=== PATIENT | female | born 1955 | race Caucasian/White ===

== ENCOUNTER → 2016-06-05 | Outpatient (CLI) | payer OTHER ==
[~2016-06-05] MED LIST: ALBUTEROL17 GM IH; ALEVE220 M2 PO; AMBIEN5 M1 PO; AMBIEN5 MG PO; AQUAPHOR OINTM105 GM TP; ATARAX,VISTARIL50 MG PO; AZOR 5/40 MG1 TABLET PO; CALCIUM + D 601 EACH PO; CALCIUM 500 MG1 EACH PO; CYMBALTA30 MG PO; DELTASONE20 M1 PO; Ecotrin PO; FERROUS SULFAT325 MG PO; HEPARIN SO5000 UNITS SC; HUMULIN 70100 UNIT/2 SC; HYDROCHLOROTH12.5 M1 PO; IBUPROFEN800 MG PO; LIPITOR80 MG PO; LOPERAMIDE2 MG PO; LOPRESSOR100 M1 PO; LOPRESSOR50 MG PO; Lopressor PO; MERREM1 GM IV; METFORMIN HCL500 M1 PO; METFORMIN HCL500 MG PO; METOPROLOL TART50 MG PO; MICROZIDE12.5 M1 PO; MULTI-DAY VITA1 EACH PO; NAPROSYN250 MG PO; NORVASC5 MG PO; OMEPRAZOLE40 M1 PO; PREDNISONE20 MG PO; PROAIR HFA8.5 GM IH; PROTONIX40 MG PO; Percocet 5/325,Endoc PO; QUESTRAN PACKET4 GM PO; SENOKOT S,PE1 TABLET PO; SINGULAIR10 MG PO; TELMISARTAN-AM1 EACH PO; TOPROL XL100 MG PO; TRAMADOL HCL50 MG PO; TYLENOL REGULA325 MG PO; VICTOZA 2-0.6 MG/0.1 SC; VITAMIN C1000 MG PO; Vicodin,Norco 5/325 PO; ZANTAC150 MG PO; ZOMIG5 MG PO; ZYVOX600 MG PO
== END | disposition home or self-care (01) ==
LOC: CDC 11:31
DX: Z01.810 Encounter for preprocedural cardiovascular examination (principal)
CPT/HCPCS: 93000

== ENCOUNTER 2016-06-06 06:12 | Day surgery (SDC) | payer OTHER ==
[~2016-06-06] VITALS: Ht 172.7 cm; Wt 116.1 kg
[~2016-06-06 06:12] MED LIST changes: -HEPARIN SO5000 UNITS SC; -HUMULIN 70100 UNIT/2 SC; -LIPITOR80 MG PO; -LOPRESSOR50 MG PO; -MERREM1 GM IV; -NORVASC5 MG PO; -TYLENOL REGULA325 MG PO; -ZYVOX600 MG PO
[2016-06-06 07:11] VITALS: BP 127/62
[2016-06-06 07:23] LABS: POINT-OF-CARE METER ID UU14174212
[2016-06-06 12:27] VITALS: BP 158/84
[2016-06-06 13:17] VITALS: BP 144/73
== END 2016-06-06 13:20 | disposition home or self-care (01) ==
LOC: SDC 06:12
PROVIDERS: Urology
DX: N20.1 Calculus of ureter (principal); I10 Essential (primary) hypertension; E11.9 Type 2 diabetes mellitus without complications; K21.9 Gastro-esophageal reflux disease without esophagitis; J45.909 Unspecified asthma, uncomplicated
CPT/HCPCS: 82948; C1876; J1100; J1580; J2250; J2405; J3010; J7120

== ENCOUNTER 2016-06-08 17:30 | Inpatient (IN) | payer OTHER ==
[~2016-06-08] VITALS: Ht 167.6 cm; Wt 127.8 kg
[2016-06-08 17:52] LABS: CREATININE 3.7 mg/dL (0.6-1.3); POTASSIUM 3.6 mEq/L (3.7-5.4)
[2016-06-08 18:45] LABS: ADD MIUA? YES; BILIRUBIN NEGATIVE; BLOOD LARGE; COLOR DK YELLOW ((YELLOW)); GLUCOSE (STRIP) NEGATIVE; KETONES NEGATIVE; LEUKOCYTES LARGE; NITRITE NEGATIVE; PROTEIN (STRIP) 30; SPECIFIC GRAVITY 1.018 (1.000-1.030); UROBILINOGEN 0.2 MG/DL (0.2-1.0)
[2016-06-08 19:29] LABS: CHLORIDE 101 mEq/L (99-109); POTASSIUM 3.5 mEq/L (3.7-5.4)
[2016-06-08 19:31] LABS: SODIUM 135 mEq/L (136-147)
[2016-06-08 19:32] LABS: GLUCOSE 181 mg/dL (70-99)
[2016-06-08 19:33] LABS: ANION GAP 16 MEQ/L (2-14)
[2016-06-08 19:34] LABS: TOTAL BILIRUBIN 1.4 mg/dL (0.0-1.0)
[2016-06-08 19:35] LABS: ALKALINE PHOSPHATASE 76 IU/L (3-129); SERUM ETHYL ALCOHOL < 10 mg/dL
[2016-06-08 19:36] LABS: GFR ESTIMATE (CALCULATED) 14 mL/min/
[2016-06-08 19:37] LABS: BACTERIA 4+; CASTS NONE SEEN /LPF; CRYSTALS NONE SEEN; EPITHELIAL CELLS 2+; MUCUS NONE SEEN; RED BLOOD CELLS 40-50 /HPF (0-5); UCUL ADDED? YES; WHITE BLOOD CELLS 40-50 /HPF (0-5)
[2016-06-08 19:37] LABS: UREA NITROGEN (BUN) 38 mg/dL (9-23)
[2016-06-08 19:39] LABS: TOTAL CK 2691 IU/L (1-294)
[2016-06-08 19:42] LABS: TROP-I INTERPRETATION POSITIVE
[2016-06-08 19:44] LABS: CK-MB 28.5 ng/mL (0.0-4.9); CREATINE KINASE 2691 IU/L (1-294); TROPONIN-I 1.57 ng/mL (0.0-0.30)
[2016-06-08 20:18] LABS: EOSINOPHIL (%) 0 % (0-5); HEMATOLOGY COMMENT 1 SMEAR COMPATIBLE; IMMATURE GRANULOCYTE (%) 1.8 % (0.0-0.7); LYMPHOCYTE COUNT 1.8 K/uL (1.0-2.8); MONOCYTE (%) 4.3 % (3-12); MONOCYTE COUNT 1.2 K/uL (0-0.8); NEUTROPHIL (%) 87.3 % (45-76); NEUTROPHIL COUNT 24.7 K/uL (1.8-6.4); PLAT.SUFFICIENCY DECREASED; USER ID NPD
[2016-06-08 20:21] LABS: HEMATOCRIT 35.7 % (36.0-46.0); MCH 29.5 PG (29.0-34.0); MCHC 32.8 G/DL (30.0-36.0); MCV 90.2 FL (83-99); MEAN PLAT.VOLUME 11.2 uM^3 (9.5-12.4); PLATELET COUNT 140 K/uL (156-360); RBC DIS.WIDTH-CV 15.6 % (11.8-14.6); RBC DIS.WIDTH-SD 50.6 % (39-53); RED BLOOD COUNT 3.96 M/uL (3.80-5.20); WHITE BLOOD COUNT 28.3 K/uL (4.1-10.2)
[2016-06-08 21:45] VITALS: BP 126/59
[2016-06-08 22:00] VITALS: BP 115/61
[2016-06-08 22:48] VITALS: BP 130/67
[2016-06-08 22:50] LABS: BICARBONATE 16.7 mEq/L (22-26); CARBOXY HGB 2.4 % (0-5); COMMENTS - BLOOD GASES C+; DEVICE VENT; FI02 50 %; MECHANICAL RATE 16 resp/min; METHEMOGLOBIN 1.7 % (0-1.5); MODE AC; PCO2 31 mm Hg (35-45); PEEP 5 CM/H20; PO2 59 mm Hg (80-100); SITE ALINE; TIDAL VOLUME 450 ML; TOTAL RESP RATE 28 resp/min; pH 7.34 (7.35-7.45)
[2016-06-08 23:00] VITALS: BP 130/67
[2016-06-08 23:26] LABS: METH RESISTANT S AUREUS PCR NEGATIVE (NEGATIVE)
[2016-06-08 23:27] LABS: PROBE CHECK PASS; SPECIMEN PROCESSING CONTROL PASS
[2016-06-09] VITALS (19 sets, daily range): BP systolic 82–139; BP diastolic 44–84
[2016-06-09 00:34] LABS: HEMATOCRIT 36.2 % (36.0-46.0); MCH 29.7 PG (29.0-34.0); MCHC 33.4 G/DL (30.0-36.0); MCV 88.9 FL (83-99); MEAN PLAT.VOLUME 11.3 uM^3 (9.5-12.4); PLATELET COUNT 145 K/uL (156-360); RBC DIS.WIDTH-CV 15.8 % (11.8-14.6); RBC DIS.WIDTH-SD 50.7 % (39-53); RED BLOOD COUNT 4.07 M/uL (3.80-5.20); WHITE BLOOD COUNT 24.8 K/uL (4.1-10.2)
[2016-06-09 01:00] LABS: TROP-I INTERPRETATION POSITIVE
[2016-06-09 01:03] LABS: TROPONIN-I 1.34 ng/mL (0.0-0.30)
[2016-06-09 01:13] LABS: CHLORIDE 107 mEq/L (99-109); POTASSIUM 3.3 mEq/L (3.7-5.4); SODIUM 135 mEq/L (136-147)
[2016-06-09 01:15] LABS: GLUCOSE 164 mg/dL (70-99)
[2016-06-09 01:17] LABS: ANION GAP 14 MEQ/L (2-14)
[2016-06-09 01:19] LABS: GFR ESTIMATE (CALCULATED) 15 mL/min/
[2016-06-09 01:20] LABS: UREA NITROGEN (BUN) 41 mg/dL (9-23)
[2016-06-09 01:59] LABS: ABS NEUTROPHIL COUNT 19.82; ANISOCYTOSIS 1+; EOSINOPHIL ABS CT 0.25; MACROCYTES 1+; MICROCYTOSIS FEW; PLAT.SUFFICIENCY ADEQUATE; POLYCHROMASIA FEW; SPHEROCYTES 1+
[2016-06-09 07:24] LABS: HEMATOCRIT 34.5 % (36.0-46.0); MCH 30.2 PG (29.0-34.0); MCHC 33.6 G/DL (30.0-36.0); MCV 89.8 FL (83-99); MEAN PLAT.VOLUME 11.8 uM^3 (9.5-12.4); PLATELET COUNT 139 K/uL (156-360); RBC DIS.WIDTH-CV 16.1 % (11.8-14.6); RED BLOOD COUNT 3.84 M/uL (3.80-5.20); WHITE BLOOD COUNT 19.2 K/uL (4.1-10.2)
[2016-06-09 07:32] LABS: INTER. NORMALIZED RATIO 1.4; PROTHROMBIN TIME 13.9 (9.2-11.2)
[2016-06-09 08:15] LABS: ANION GAP 16 MEQ/L (2-14); CHLORIDE 105 MEQ/L (99-109); GFR ESTIMATE (CALCULATED) 14 mL/min/; GLUCOSE 133 mg/dL (70-99); POTASSIUM 3.6 MEQ/L (3.7-5.4); SAMPLE HEMOLYSIS CHECK 1; SAMPLE ICTERIC CHECK 0; SAMPLE LIPEMIA CHECK 0; SODIUM 136 MEQ/L (136-147); UREA NITROGEN (BUN) 41 mg/dL (9-23)
[2016-06-09 09:04] LABS: BASE EXCESS -6.7 mEq/L (-3 to +3); BICARBONATE 16.5 mEq/L (22-26); CARBOXY HGB 2.1 % (0-5); METHEMOGLOBIN 1.6 % (0-1.5); pH 7.41 (7.35-7.45)
[2016-06-09 09:05] LABS: COMMENTS - BLOOD GASES C+; DEVICE 840; FI02 40 %; MECHANICAL RATE 16 resp/min; MODE A/C; PCO2 26 mm Hg (35-45); PEEP 5 CM/H20; PO2 78 mm Hg (80-100); SITE ALINE; TIDAL VOLUME 450 ML; TOTAL RESP RATE 38 resp/min
[2016-06-09 09:34] LABS: MAGNESIUM 1.5 mg/dl (1.3-2.7)
[2016-06-09 10:32] LABS: ABS NEUTROPHIL COUNT 16.68; ANISOCYTOSIS 1+; EOSINOPHIL (%) 0 % (0-5); IMMATURE GRANULOCYTE (%) 6.7 % (0.0-0.7); IMMATURE GRANULOCYTE COUNT 1.3 K/uL; LYMPHOCYTE COUNT 1.4 K/uL (1.0-2.8); MONOCYTE (%) 3.1 % (3-12); MONOCYTE COUNT 0.6 K/uL (0-0.8); NEUTROPHIL (%) 82.5 % (45-76); NEUTROPHIL COUNT 15.8 K/uL (1.8-6.4); PLAT.SUFFICIENCY DECREASED; USER ID STC
[2016-06-09 12:25] LABS: HEMATOCRIT 33.6 % (36.0-46.0); MCH 29.7 PG (29.0-34.0); MCV 89.8 FL (83-99); MEAN PLAT.VOLUME 12.2 uM^3 (9.5-12.4); PLATELET COUNT 140 K/uL (156-360); RBC DIS.WIDTH-CV 16.3 % (11.8-14.6); RBC DIS.WIDTH-SD 53.9 % (39-53); RED BLOOD COUNT 3.74 M/uL (3.80-5.20); WHITE BLOOD COUNT 14.6 K/uL (4.1-10.2)
[2016-06-09 12:32] LABS: EOSINOPHIL (%) 0.1 % (0-5); IMMATURE GRANULOCYTE (%) 1.8 % (0.0-0.7); IMMATURE GRANULOCYTE COUNT 0.3 K/uL; LYMPHOCYTE COUNT 1.1 K/uL (1.0-2.8); MONOCYTE (%) 3.6 % (3-12); MONOCYTE COUNT 0.5 K/uL (0-0.8); NEUTROPHIL (%) 86.9 % (45-76); NEUTROPHIL COUNT 12.7 K/uL (1.8-6.4)
[2016-06-09 12:44] LABS: ANION GAP 17 MEQ/L (2-14); CHLORIDE 105 MEQ/L (99-109); GFR ESTIMATE (CALCULATED) 14 mL/min/; GLUCOSE 187 mg/dL (70-99); SAMPLE HEMOLYSIS CHECK 2; SAMPLE ICTERIC CHECK 0; SAMPLE LIPEMIA CHECK 0; SODIUM 137 MEQ/L (136-147); UREA NITROGEN (BUN) 45 mg/dL (9-23)
[2016-06-09 12:45] LABS: TROP-I INTERPRETATION POSITIVE
[2016-06-09 12:47] LABS: TROPONIN-I 0.66 ng/mL (0.0-0.30)
[2016-06-09 13:42] LABS: MAGNESIUM 1.6 mg/dl (1.3-2.7)
[2016-06-09 13:48] LABS: HEMATOLOGY COMMENT 1 SMEAR COMPATIBLE; USER ID STC
[2016-06-09 14:50] LABS: BASE EXCESS -10.5 mEq/L (-3 to +3); BICARBONATE 14.9 mEq/L (22-26); CARBOXY HGB 1.9 % (0-5); COMMENTS - BLOOD GASES C+; DEVICE 840; FI02 100 %; MECHANICAL RATE 28 resp/min; METHEMOGLOBIN 1.5 % (0-1.5); MODE A/C; PCO2 31 mm Hg (35-45); PO2 169 mm Hg (80-100); SITE ALINE; TOTAL RESP RATE 28 resp/min
[2016-06-09 14:51] LABS: PEEP 10 CM/H20; TIDAL VOLUME 500 ML; pH 7.29 (7.35-7.45)
[2016-06-09 16:56] LABS: TROP-I INTERPRETATION POSITIVE
[2016-06-09 17:16] LABS: ANION GAP 20 MEQ/L (2-14); CHLORIDE 104 MEQ/L (99-109); GFR ESTIMATE (CALCULATED) 13 mL/min/; GLUCOSE 186 mg/dL (70-99); POTASSIUM 3.6 MEQ/L (3.7-5.4); SAMPLE HEMOLYSIS CHECK 0; SAMPLE ICTERIC CHECK 0; SAMPLE LIPEMIA CHECK 0; SODIUM 137 MEQ/L (136-147); UREA NITROGEN (BUN) 43 mg/dL (9-23)
[2016-06-09 19:15] LABS: MAGNESIUM 2.6 mg/dl (1.3-2.7)
[2016-06-09 19:59] LABS: BASOPHIL COUNT 0.1 K/uL (0-0.1); EOSINOPHIL (%) 0 % (0-5); HEMATOCRIT 34.6 % (36.0-46.0); IMMATURE GRANULOCYTE (%) 7.5 % (0.0-0.7); IMMATURE GRANULOCYTE COUNT 1.9 K/uL; LYMPHOCYTE COUNT 0.8 K/uL (1.0-2.8); MCH 30.3 PG (29.0-34.0); MCHC 33.8 G/DL (30.0-36.0); MCV 89.6 FL (83-99); MEAN PLAT.VOLUME 12.9 uM^3 (9.5-12.4); MONOCYTE (%) 3.7 % (3-12); MONOCYTE COUNT 0.9 K/uL (0-0.8); NEUTROPHIL (%) 85.2 % (45-76); NEUTROPHIL COUNT 21.4 K/uL (1.8-6.4); PLAT.SUFFICIENCY DECREASED; PLATELET COUNT 87 K/uL (156-360); RBC DIS.WIDTH-CV 16.5 % (11.8-14.6); RED BLOOD COUNT 3.86 M/uL (3.80-5.20); WHITE BLOOD COUNT 25.1 K/uL (4.1-10.2)
[2016-06-09 23:57] LABS: POTASSIUM 3.7 mEq/L (3.7-5.4)
[2016-06-10] VITALS (19 sets, daily range): BP systolic 102–142; BP diastolic 49–75
[2016-06-10 01:03] LABS: TROP-I INTERPRETATION INDETERMINATE; TROPONIN-I 0.49 ng/mL (0.0-0.30)
[2016-06-10 01:34] LABS: CHLORIDE 102 mEq/L (99-109); POTASSIUM 3.7 mEq/L (3.7-5.4); SODIUM 134 mEq/L (136-147)
[2016-06-10 01:37] LABS: ANION GAP 18 MEQ/L (2-14)
[2016-06-10 01:39] LABS: GFR ESTIMATE (CALCULATED) 11 mL/min/
[2016-06-10 01:40] LABS: UREA NITROGEN (BUN) 48 mg/dL (9-23)
[2016-06-10 01:43] LABS: GLUCOSE 298 mg/dL (70-99)
[2016-06-10 01:47] LABS: EOSINOPHIL (%) 0.8 % (0-5); EOSINOPHIL COUNT 0.1 K/uL (0-0.3); HEMATOCRIT 31.3 % (36.0-46.0); IMMATURE GRANULOCYTE (%) 5.6 % (0.0-0.7); IMMATURE GRANULOCYTE COUNT 0.9 K/uL; LYMPHOCYTE COUNT 1.1 K/uL (1.0-2.8); MCH 29.4 PG (29.0-34.0); MCHC 33.5 G/DL (30.0-36.0); MCV 87.7 FL (83-99); MONOCYTE (%) 3.5 % (3-12); MONOCYTE COUNT 0.6 K/uL (0-0.8); NEUTROPHIL (%) 83.2 % (45-76); NEUTROPHIL COUNT 13.5 K/uL (1.8-6.4); RBC DIS.WIDTH-CV 16.2 % (11.8-14.6); RBC DIS.WIDTH-SD 52.4 % (39-53); RED BLOOD COUNT 3.57 M/uL (3.80-5.20)
[2016-06-10 01:53] LABS: WHITE BLOOD COUNT 16.3 K/uL (4.1-10.2)
[2016-06-10 02:34] LABS: ABS NEUTROPHIL COUNT 15.29; ANISOCYTOSIS 1+; MEAN PLAT.VOLUME 12.7 uM^3 (9.5-12.4); OVALOCYTES OCC; PLAT.SUFFICIENCY DECREASED; PLATELET COUNT 104 K/uL (156-360); POLYCHROMASIA OCC; SCHISTOCYTES OCC; TEAR DROP CELLS RARE; TOXIC GRANULATION 1+; USER ID WCD
[2016-06-10 04:51] LABS: HEMATOCRIT 30.2 % (36.0-46.0); MCH 29.8 PG (29.0-34.0); MCHC 34.4 G/DL (30.0-36.0); MCV 86.5 FL (83-99); MEAN PLAT.VOLUME 12.3 uM^3 (9.5-12.4); PLATELET COUNT 84 K/uL (156-360); RBC DIS.WIDTH-CV 15.9 % (11.8-14.6); RBC DIS.WIDTH-SD 49.8 % (39-53); RED BLOOD COUNT 3.49 M/uL (3.80-5.20)
[2016-06-10 04:59] LABS: EOSINOPHIL (%) 0.5 % (0-5); EOSINOPHIL COUNT 0.1 K/uL (0-0.3); LYMPHOCYTE COUNT 1.2 K/uL (1.0-2.8); MONOCYTE COUNT 0.5 K/uL (0-0.8); NEUTROPHIL (%) 86.5 % (45-76)
[2016-06-10 05:06] LABS: CHLORIDE 102 mEq/L (99-109); POTASSIUM 3.9 mEq/L (3.7-5.4); SODIUM 133 mEq/L (136-147)
[2016-06-10 05:07] LABS: GLUCOSE 337 mg/dL (70-99)
[2016-06-10 05:09] LABS: ANION GAP 15 MEQ/L (2-14)
[2016-06-10 05:11] LABS: GFR ESTIMATE (CALCULATED) 11 mL/min/
[2016-06-10 05:12] LABS: UREA NITROGEN (BUN) 49 mg/dL (9-23)
[2016-06-10 05:22] LABS: TROP-I INTERPRETATION INDETERMINATE; TROPONIN-I 0.44 ng/mL (0.0-0.30)
[2016-06-10 10:15] LABS: POINT-OF-CARE METER ID UU13113803
[2016-06-10 10:55] LABS: C DIFF TOXIN NEGATIVE (NEGATIVE)
[2016-06-10 10:56] LABS: PROBE CHECK PASS; SPECIMEN PROCESSING CONTROL PASS
[2016-06-10 11:08] LABS: BASE EXCESS -0.6 mEq/L (-3 to +3); CARBOXY HGB 1.4 % (0-5); METHEMOGLOBIN 1.6 % (0-1.5); PCO2 27 mm Hg (35-45); PO2 157 mm Hg (80-100); pH 7.51 (7.35-7.45)
[2016-06-10 11:09] LABS: BICARBONATE 21.5 mEq/L (22-26); COMMENTS - BLOOD GASES C+; DEVICE 840; FI02 60 %; MECHANICAL RATE 28 resp/min; MODE A/C; PEEP 10 CM/H20; SITE ALINE; TIDAL VOLUME 500 ML; TOTAL RESP RATE 28 resp/min
[2016-06-10 12:38] LABS: HEMATOCRIT 30.5 % (36.0-46.0); MCH 29.7 PG (29.0-34.0); MCHC 34.4 G/DL (30.0-36.0); MCV 86.4 FL (83-99); MEAN PLAT.VOLUME 12.7 uM^3 (9.5-12.4); PLATELET COUNT 105 K/uL (156-360); RBC DIS.WIDTH-CV 16.2 % (11.8-14.6); RBC DIS.WIDTH-SD 51.9 % (39-53); RED BLOOD COUNT 3.53 M/uL (3.80-5.20); WHITE BLOOD COUNT 15.7 K/uL (4.1-10.2)
[2016-06-10 12:49] LABS: EOSINOPHIL (%) 0.1 % (0-5); IMMATURE GRANULOCYTE (%) 2.3 % (0.0-0.7); IMMATURE GRANULOCYTE COUNT 0.4 K/uL; LYMPHOCYTE COUNT 0.8 K/uL (1.0-2.8); MONOCYTE (%) 3.1 % (3-12); MONOCYTE COUNT 0.5 K/uL (0-0.8); NEUTROPHIL (%) 89.5 % (45-76); NEUTROPHIL COUNT 14.1 K/uL (1.8-6.4)
[2016-06-10 13:07] LABS: ANION GAP 14 MEQ/L (2-14); CHLORIDE 98 MEQ/L (99-109); GFR ESTIMATE (CALCULATED) 12 mL/min/; GLUCOSE 268 mg/dL (70-99); POTASSIUM 3.8 MEQ/L (3.7-5.4); SAMPLE HEMOLYSIS CHECK 1; SAMPLE ICTERIC CHECK 0; SAMPLE LIPEMIA CHECK 0; SODIUM 133 MEQ/L (136-147); UREA NITROGEN (BUN) 47 mg/dL (9-23)
[2016-06-10 13:40] LABS: HEMATOLOGY COMMENT 1 SMEAR COMPATIBLE; USER ID STC
[2016-06-10 13:55] LABS: POINT-OF-CARE METER ID UU13113803
[2016-06-10 19:54] LABS: POINT-OF-CARE METER ID UU14162636
== END 2016-06-10 21:38 | disposition short-term general hospital (02) | DRG 871 ==
LOC: EME → EDBD 17:30 → EME 17:30 → 4WEST 19:53 → EDOF 19:53 → 4WEST 21:30
PROVIDERS: Emergency Medicine; Internal Medicine Critical Care Medicine; Internal Medicine Nephrology
PROC: 0TF78ZZ Fragmentation in Left Ureter, Via Natural or Artificial Opening Endoscopic (ICD-10-PCS; 2016-06-06)
PROC: 0T778DZ Dilation of Left Ureter with Intraluminal Device, Via Natural or Artificial Opening Endoscopic (ICD-10-PCS; 2016-06-06)
PROC: 5A1945Z Respiratory Ventilation, 24-96 Consecutive Hours (ICD-10-PCS; principal; 2016-06-08)
PROC: 0BH17EZ Insertion of Endotracheal Airway into Trachea, Via Natural or Artificial Opening (ICD-10-PCS; 2016-06-08)
PROC: 03HY32Z Insertion of Monitoring Device into Upper Artery, Percutaneous Approach (ICD-10-PCS; 2016-06-08)
PROC: B54BZZA Ultrasonography of Right Lower Extremity Veins, Guidance (ICD-10-PCS; 2016-06-08)
PROC: 06HM33Z Insertion of Infusion Device into Right Femoral Vein, Percutaneous Approach (ICD-10-PCS; 2016-06-08)
PROC: 03HY32Z Insertion of Monitoring Device into Upper Artery, Percutaneous Approach (ICD-10-PCS; 2016-06-09)
PROC: B34JZZZ Ultrasonography of Left Upper Extremity Arteries (ICD-10-PCS; 2016-06-09)
PROC: 02HV33Z Insertion of Infusion Device into Superior Vena Cava, Percutaneous Approach (ICD-10-PCS; 2016-06-10)
DX: A41.59 Other Gram-negative sepsis (principal); R65.21 Severe sepsis with septic shock; N13.6 Pyonephrosis; N17.9 Acute kidney failure, unspecified; E87.2 Acidosis; M62.82 Rhabdomyolysis; Z16.24 Resistance to multiple antibiotics; F32.9 Major depressive disorder, single episode, unspecified; E11.9 Type 2 diabetes mellitus without complications; G89.4 Chronic pain syndrome; E66.9 Obesity, unspecified; I10 Essential (primary) hypertension; K21.9 Gastro-esophageal reflux disease without esophagitis; G43.909 Migraine, unspecified, not intractable, without status migrainosus; I48.0 Paroxysmal atrial fibrillation; R79.89 Other specified abnormal findings of blood chemistry; J45.909 Unspecified asthma, uncomplicated; Z68.41 Body mass index [BMI] 40.0-44.9, adult; Z23 Encounter for immunization; Z88.2 Allergy status to sulfonamides; Z79.82 Long term (current) use of aspirin; Z88.0 Allergy status to penicillin
CPT/HCPCS: 36415; 36600; 70450; 71010; 74176; 80047; 80048; 80048 91; 80053; 80202; 81003; 82550; 82553; 82803; 82948; 83605; 83735; 83880; 84100; 84484; 84550; 84999; 85025; 85025 91; 85027; 85610; 87040; 87070; 87077; 87086; 87186; 87205; 87493; 87641; 87801; 93000; 93005; 93306; 94002; 94003; 99202; 99281; 99285; C1788; C1876; G0480; J0282; J0692; J1100; J1580; J1644; J1720; J1815; J2185; J2250; J2405; J3010; J3370; J3475; J3480; J7040; J7050; J7070; J7120; P9045; S0028

== ENCOUNTER 2016-06-23 11:58 | Inpatient (IN) | payer OTHER ==
[~2016-06-23] VITALS: Ht 172.7 cm; Wt 121.9 kg
[2016-06-23 12:30] VITALS: BP 136/62
[2016-06-23 13:28] LABS: POINT-OF-CARE METER ID UU14174215
[2016-06-23] MEDS ORDERED: TYLENOL REGULA325 MG PO (14:17)
[2016-06-23] MEDS ORDERED: NORVASC5 MG PO (14:18)
[2016-06-23] MEDS ORDERED: LIPITOR80 MG PO (14:19)
[2016-06-23] MEDS ORDERED: HEPARIN SO5000 UNITS SC (14:21)
[2016-06-23] MEDS ORDERED: MICROZIDE12.5 M1 PO (14:22)
[2016-06-23] MEDS ORDERED: HUMULIN 70100 UNIT/2 SC (14:23)
[2016-06-23] MEDS ORDERED: ZYVOX600 MG PO (14:24)
[2016-06-23] MEDS ORDERED: MERREM1 GM IV (14:26)
[2016-06-23] MEDS ORDERED: ZANTAC150 MG PO (14:28)
[2016-06-23] MEDS ORDERED: LOPRESSOR50 MG PO (14:28)
[2016-06-23 15:43] VITALS: BP 130/60
[2016-06-23 16:31] LABS: POINT-OF-CARE METER ID UU14174215
[2016-06-23 20:09] LABS: POINT-OF-CARE METER ID UU14174215
[2016-06-24 00:15] VITALS: BP 138/62
[2016-06-24 04:28] LABS: CHLORIDE 104 mEq/L (99-109); POTASSIUM 4.2 mEq/L (3.7-5.4); SODIUM 140 mEq/L (136-147)
[2016-06-24 04:32] LABS: ANION GAP 8 MEQ/L (2-14); GLUCOSE 116 mg/dL (70-99); TOTAL BILIRUBIN 0.8 mg/dL (0.0-1.0)
[2016-06-24 04:34] LABS: ALKALINE PHOSPHATASE 60 IU/L (3-129); GFR ESTIMATE (CALCULATED) > 59 mL/min/
[2016-06-24 04:35] LABS: UREA NITROGEN (BUN) 12 mg/dL (9-23)
[2016-06-24 04:56] VITALS: BP 124/58
[2016-06-24 05:14] LABS: C DIFF TOXIN NEGATIVE (NEGATIVE)
[2016-06-24 05:20] LABS: PROBE CHECK PASS; SPECIMEN PROCESSING CONTROL PASS
[2016-06-24 06:31] LABS: HEMATOCRIT 24.9 % (36.0-46.0); MCH 28.5 PG (29.0-34.0); MCHC 30.9 G/DL (30.0-36.0); MCV 92.2 FL (83-99); MEAN PLAT.VOLUME 9.9 uM^3 (9.5-12.4); PLATELET COUNT 334 K/uL (156-360); RBC DIS.WIDTH-CV 15.1 % (11.8-14.6); RBC DIS.WIDTH-SD 51.4 % (39-53)
[2016-06-24 08:15] LABS: POINT-OF-CARE METER ID UU13113712
[2016-06-24 11:59] LABS: POINT-OF-CARE METER ID UU13113712
[2016-06-24 15:00] VITALS: BP 131/60
[2016-06-24 16:31] LABS: POINT-OF-CARE METER ID UU14174215
[2016-06-24 21:20] LABS: POINT-OF-CARE METER ID UU13113720
[2016-06-25 05:21] VITALS: BP 120/59
[2016-06-25 06:05] LABS: HEMATOCRIT 26.3 % (36.0-46.0); MCH 29.3 PG (29.0-34.0); MCHC 31.2 G/DL (30.0-36.0); MCV 93.9 FL (83-99); PLATELET COUNT 362 K/uL (156-360); RBC DIS.WIDTH-CV 14.9 % (11.8-14.6); WHITE BLOOD COUNT 8.2 K/uL (4.1-10.2)
[2016-06-25 06:40] LABS: GLUCOSE 94 mg/dL (70-99); UREA NITROGEN (BUN) 12 mg/dL (9-23)
[2016-06-25 06:41] LABS: ANION GAP 9 MEQ/L (2-14); CHLORIDE 104 MEQ/L (99-109); GFR ESTIMATE (CALCULATED) > 59 mL/min/; POTASSIUM 4.4 MEQ/L (3.7-5.4); SAMPLE HEMOLYSIS CHECK 0; SAMPLE ICTERIC CHECK 0; SAMPLE LIPEMIA CHECK 0; SODIUM 141 MEQ/L (136-147)
[2016-06-25 07:43] LABS: POINT-OF-CARE METER ID UU14174215
[2016-06-25 11:50] VITALS: BP 132/70
[2016-06-25 11:59] LABS: POINT-OF-CARE METER ID UU14174215
[2016-06-25 15:00] VITALS: BP 136/60
[2016-06-25 16:30] LABS: POINT-OF-CARE METER ID UU14174215
[2016-06-25 21:21] LABS: POINT-OF-CARE METER ID UU14174215
[2016-06-26 05:31] VITALS: BP 138/68
[2016-06-26 06:59] LABS: POINT-OF-CARE METER ID UU14174215
[2016-06-26 12:39] LABS: POINT-OF-CARE METER ID UU13113720
[2016-06-26 12:58] VITALS: BP 100/50
[2016-06-26 15:15] VITALS: BP 128/62
[2016-06-26 16:33] LABS: POINT-OF-CARE METER ID UU13113720
[2016-06-27 05:10] VITALS: BP 141/67
[2016-06-27 07:23] LABS: POINT-OF-CARE METER ID UU13113720; POINT-OF-CARE USER ID ENVGAF
[2016-06-27 15:10] VITALS: BP 128/60
[2016-06-27 16:43] LABS: POINT-OF-CARE METER ID UU13113720
[2016-06-27 23:37] LABS: COLOR YELLOW ((YELLOW))
[2016-06-27 23:38] LABS: BILIRUBIN NEGATIVE; GLUCOSE (STRIP) NEGATIVE; KETONES NEGATIVE
[2016-06-27 23:39] LABS: BLOOD LARGE; PROTEIN (STRIP) 300; SPECIFIC GRAVITY 1.025 (1.000-1.030)
[2016-06-27 23:40] LABS: ADD MIUA? YES; LEUKOCYTES MODERATE; NITRITE NEGATIVE; UROBILINOGEN 0.2 MG/DL (0.2-1.0)
[2016-06-28 01:05] LABS: CASTS NONE SEEN /LPF; EPITHELIAL CELLS 2+; MUCUS TRACE
[2016-06-28 01:06] LABS: BACTERIA RARE; CRYSTALS NONE SEEN; UCUL ADDED? NO; WHITE BLOOD CELLS 30-40 /HPF (0-5)
[2016-06-28 05:26] VITALS: BP 134/63
[2016-06-28 05:37] LABS: HEMATOCRIT 24.8 % (36.0-46.0); MCHC 31.9 G/DL (30.0-36.0); MCV 91.2 FL (83-99); MEAN PLAT.VOLUME 9.8 uM^3 (9.5-12.4); PLATELET COUNT 339 K/uL (156-360); RBC DIS.WIDTH-CV 14.7 % (11.8-14.6); RBC DIS.WIDTH-SD 48.4 % (39-53); RED BLOOD COUNT 2.72 M/uL (3.80-5.20); WHITE BLOOD COUNT 7.2 K/uL (4.1-10.2)
[2016-06-28 06:43] LABS: ALKALINE PHOSPHATASE 58 IU/L (3-129); ANION GAP 8 MEQ/L (2-14); CHLORIDE 106 MEQ/L (99-109); GFR ESTIMATE (CALCULATED) > 59 mL/min/; GLUCOSE 92 mg/dL (70-99); POTASSIUM 3.8 MEQ/L (3.7-5.4); SAMPLE HEMOLYSIS CHECK 0; SAMPLE ICTERIC CHECK 0; SAMPLE LIPEMIA CHECK 0; SODIUM 140 MEQ/L (136-147); TOTAL BILIRUBIN 0.5 MG/DL (0.0-1.0); UREA NITROGEN (BUN) 12 mg/dL (9-23)
[2016-06-28 07:36] LABS: POINT-OF-CARE METER ID UU13113720
[2016-06-28 15:51] VITALS: BP 124/72
[2016-06-28 16:31] LABS: POINT-OF-CARE METER ID UU14174215
[2016-06-29 05:03] VITALS: BP 119/67; BP 127/75
[2016-06-29 07:19] LABS: POINT-OF-CARE METER ID UU13113720
[2016-06-29 11:02] VITALS: BP 146/70
[2016-06-29] MEDS ORDERED: THERAGRAN1 TABLET PO (11:39)
[2016-06-29] MEDS ORDERED: MICROZIDE12.5 M1 PO (11:39)
[2016-06-29] MEDS ORDERED: FLORASTOR250 MG PO (11:39)
[2016-06-29] MEDS ORDERED: DULOXETINE HCL30 MG PO (11:39)
[2016-06-29] MEDS ORDERED: LIPITOR80 MG PO (11:39)
[2016-06-29] MEDS ORDERED: LEVOFLOXACIN750 MG PO (11:39)
[2016-06-29] MEDS ORDERED: ZANTAC150 MG PO (11:39)
[2016-06-29] MEDS ORDERED: LOPRESSOR50 MG PO (11:39)
[2016-06-29] MEDS ORDERED: FOLIC ACID1 MG PO (11:39)
[2016-06-29] MEDS ORDERED: METFORMIN HCL500 MG PO (11:39)
[2016-06-29] MEDS ORDERED: MONTELUKAST SOD10 MG PO (11:39)
[2016-06-29] MEDS ORDERED: LOPERAMIDE2 MG PO (11:39)
[2016-06-29] MEDS ORDERED: NIFEREX-150,FE150 MG PO (11:39)
[2016-06-29] MEDS ORDERED: ZYVOX600 MG PO (11:39)
[2016-06-29] MEDS ORDERED: NORVASC5 MG PO (11:39)
[2016-06-29] MEDS ORDERED: ASCORBIC ACID500 M3 PO (11:39)
[2016-06-29] MEDS ORDERED: CHOLESTYRAMINE P4 GM PO (11:39)
== END 2016-06-29 13:13 | disposition home health service (06) | DRG 871 ==
LOC: 3WEST 11:58
PROVIDERS: Physical Medicine & Rehabilitation Pain Medicine; Urology
PROC: F07M0ZZ Range of Motion and Joint Mobility Treatment of Musculoskeletal System - Whole Body (ICD-10-PCS; principal; 2016-06-23)
DX: A41.59 Other Gram-negative sepsis (principal); R65.21 Severe sepsis with septic shock; Z68.41 Body mass index [BMI] 40.0-44.9, adult; F33.9 Major depressive disorder, recurrent, unspecified; N13.30 Unspecified hydronephrosis; E66.9 Obesity, unspecified; I10 Essential (primary) hypertension; E11.9 Type 2 diabetes mellitus without complications; J45.909 Unspecified asthma, uncomplicated; G47.30 Sleep apnea, unspecified; G43.909 Migraine, unspecified, not intractable, without status migrainosus; M19.90 Unspecified osteoarthritis, unspecified site; Z96.652 Presence of left artificial knee joint; N20.0 Calculus of kidney; E88.09 Other disorders of plasma-protein metabolism, not elsewhere classified; I48.0 Paroxysmal atrial fibrillation; D64.9 Anemia, unspecified; D69.6 Thrombocytopenia, unspecified; Z88.0 Allergy status to penicillin; Z88.2 Allergy status to sulfonamides; Z91.012 Allergy to eggs; Z93.59 Other cystostomy status; I25.2 Old myocardial infarction
CPT/HCPCS: 50434; 74000; 78452; 80048; 80053; 81003; 82948; 85027; 87086; 87493; 93005; 93017; 97110 GO; 97530 GP; A9500; J1170; J1644; J1815; J2785

== ENCOUNTER 2016-07-06 06:53 | Day surgery (SDC) | payer OTHER ==
[~2016-07-06] VITALS: Ht 172.7 cm; Wt 113.4 kg
[~2016-07-06 06:53] MED LIST changes: +ASCORBIC ACID500 M3 PO; +CHOLESTYRAMINE P4 GM PO; +DULOXETINE HCL30 MG PO; +FLORASTOR250 MG PO; +FOLIC ACID1 MG PO; +HEPARIN SO5000 UNITS SC; +HUMULIN 70100 UNIT/2 SC; +INVANZ1 GM IV; +LEVOFLOXACIN750 MG PO; +LIPITOR80 MG PO; +LOPRESSOR50 MG PO; +MERREM1 GM IV; +MONTELUKAST SOD10 MG PO; +NIFEREX-150,FE150 MG PO; +NORVASC5 MG PO; +THERAGRAN1 TABLET PO; +TYLENOL REGULA325 MG PO; +ZYVOX600 MG PO
[2016-07-06 07:58] LABS: HEMATOCRIT 27.1 % (36.0-46.0); MCV 92.2 FL (83-99)
[2016-07-06 08:38] VITALS: BP 117/59
[2016-07-06 08:44] LABS: POINT-OF-CARE METER ID UU14174212
[2016-07-06 11:40] VITALS: BP 139/75
[2016-07-06 13:00] VITALS: BP 120/64
== END 2016-07-06 13:13 | disposition home or self-care (01) ==
LOC: SDC
PROVIDERS: Urology
PROC: 0TF78ZZ Fragmentation in Left Ureter, Via Natural or Artificial Opening Endoscopic (ICD-10-PCS; principal; 2016-07-06)
DX: N20.1 Calculus of ureter (principal); Z93.6 Other artificial openings of urinary tract status; I10 Essential (primary) hypertension; J45.909 Unspecified asthma, uncomplicated; E11.9 Type 2 diabetes mellitus without complications; K21.9 Gastro-esophageal reflux disease without esophagitis
CPT/HCPCS: 74000; 76000; 82365 90; 82948; 85014; 85018; 86850; 86900; 86901; C1769; J0131; J0330; J1100; J1335; J1885; J2250; J2405; J2765; J3010; J7050

== ENCOUNTER 2017-10-13 19:34 | Emergency (ER) | payer OTHER ==
[~2017-10-13] VITALS: Ht 167.6 cm; Wt 119.7 kg
[~2017-10-13 19:34] MED LIST changes: +IRON325 M1 PO; +JANUVIA100 MG PO; +OMEPRAZOLE20 MG PO; +TYLENOL EXTRA500 MG PO; -TYLENOL REGULA325 MG PO
[2017-10-13 20:05] LABS: HEMATOCRIT 44.3 % (36.0-46.0); HEMOGLOBIN 14.6 G/DL (11.9-15.5); MCH 29.7 PG (29.0-34.0); MCV 90.2 FL (83-99); PLATELET COUNT 252 K/uL (156-360); RBC DIS.WIDTH-CV 14.5 % (11.8-14.6); RBC DIS.WIDTH-SD 47.7 % (39-53); RED BLOOD COUNT 4.91 M/uL (3.80-5.20); WHITE BLOOD COUNT 12.7 K/uL (4.1-10.2)
[2017-10-13 20:17] LABS: CHLORIDE 105 mEq/L (99-109); SODIUM 144 mEq/L (136-147)
[2017-10-13 20:18] LABS: GLUCOSE 133 mg/dL (70-99)
[2017-10-13 20:22] LABS: CREATININE 0.8 mg/dL (0.6-1.3); GFR ESTIMATE (CALCULATED) > 59 mL/min/
[2017-10-13 20:23] LABS: UREA NITROGEN (BUN) 16 mg/dL (9-23)
[2017-10-13 21:35] LABS: TROP-I INTERPRETATION NEGATIVE; TROPONIN-I 0.02 ng/mL (0.0-0.30)
[2017-10-13 22:12] LABS: THYROTROPIN (TSH) 2.3 MIU/L (0.4-5.5)
[2017-10-13 23:41] LABS: TROP-I INTERPRETATION NEGATIVE; TROPONIN-I 0.01 ng/mL (0.0-0.30)
[2017-10-13 23:48] LABS: APPEARANCE SL.HAZY ((CLEAR)); BILIRUBIN NEGATIVE; BLOOD NEGATIVE; COLOR YELLOW ((YELLOW)); GLUCOSE (STRIP) NEGATIVE; KETONES NEGATIVE; LEUKOCYTES LARGE; NITRITE NEGATIVE; PROTEIN (STRIP) 30; UROBILINOGEN 0.2 MG/DL (0.2-1.0)
[2017-10-13 23:53] LABS: BACTERIA RARE /HPF; EPITHELIAL CELLS 3+ /HPF; MUCUS TRACE /LPF; UCUL ADDED? YES; WHITE BLOOD CELLS TNTC /HPF (0-5)
[2017-10-14] MEDS ORDERED: KEFLEX500 MG PO (00:51)
[2017-10-14 01:06] VITALS: BP 150/82
== END 2017-10-14 01:06 | disposition home or self-care (01) ==
LOC: EME 19:34
PROVIDERS: Physician Assistant
DX: R06.00 Dyspnea, unspecified (principal); N39.0 Urinary tract infection, site not specified; J45.909 Unspecified asthma, uncomplicated; I10 Essential (primary) hypertension; E11.9 Type 2 diabetes mellitus without complications; F32.9 Major depressive disorder, single episode, unspecified; K21.9 Gastro-esophageal reflux disease without esophagitis; I25.2 Old myocardial infarction; Z87.442 Personal history of urinary calculi; Z90.710 Acquired absence of both cervix and uterus; Z88.0 Allergy status to penicillin; Z88.2 Allergy status to sulfonamides; Z88.8 Allergy status to other drugs, medicaments and biological substances
CPT/HCPCS: 71046; 71275; 80048; 81003; 83880; 84443; 84484; 85027; 85379; 87086; 93005; 99281; 99285

== ENCOUNTER 2017-10-20 14:43 | Inpatient (IN) | payer OTHER ==
[~2017-10-20] VITALS: Ht 167.6 cm; Wt 119.6 kg
[~2017-10-20 14:43] MED LIST changes: +KEFLEX500 MG PO
[2017-10-20 15:52] LABS: BASOPHIL (%) 0.3 % (0-1); BASOPHIL COUNT 0.1 K/uL (0-0.1); EOSINOPHIL (%) 0.6 % (0-5); EOSINOPHIL COUNT 0.1 K/uL (0-0.3); HEMATOCRIT 45.8 % (36.0-46.0); HEMOGLOBIN 15.3 G/DL (11.9-15.5); IMMATURE GRANULOCYTE (%) 0.6 % (0.0-0.7); LYMPHOCYTE (%) 13.5 % (15-42); LYMPHOCYTE COUNT 2.1 K/uL (1.0-2.8); MCHC 33.4 G/DL (30.0-36.0); MCV 89.8 FL (83-99); MONOCYTE (%) 5.5 % (3-12); MONOCYTE COUNT 0.9 K/uL (0-0.8); NEUTROPHIL (%) 79.5 % (45-76); NEUTROPHIL COUNT 12.5 K/uL (1.8-6.4); PLATELET COUNT 288 K/uL (156-360); RBC DIS.WIDTH-CV 14.7 % (11.8-14.6); RBC DIS.WIDTH-SD 47.8 % (39-53); WHITE BLOOD COUNT 15.7 K/uL (4.1-10.2)
[2017-10-20 16:00] LABS: ALBUMIN 4.3 g/dL (3.2-4.8); CHLORIDE 101 mEq/L (99-109); POTASSIUM 3.8 mEq/L (3.7-5.4); SODIUM 140 mEq/L (136-147)
[2017-10-20 16:02] LABS: GLUCOSE 281 mg/dL (70-99)
[2017-10-20 16:03] LABS: TOTAL PROTEIN 7.5 g/dL (6.4-8.3)
[2017-10-20 16:04] LABS: TOTAL BILIRUBIN 0.5 mg/dL (0.0-1.0)
[2017-10-20 16:06] LABS: ALKALINE PHOSPHATASE 105 IU/L (3-129); CREATININE 0.9 mg/dL (0.6-1.3); GFR ESTIMATE (CALCULATED) > 59 mL/min/
[2017-10-20 16:08] LABS: AST (GOT) 23 IU/L (2-34)
[2017-10-20 16:09] LABS: ALT (GPT) 35 IU/L (3-49)
[2017-10-20 16:10] LABS: UREA NITROGEN (BUN) 29 mg/dL (9-23)
[2017-10-20] MEDS ORDERED: CALCIUM 500 MG1 EACH PO (16:22)
[2017-10-20 16:31] LABS: ERTH.SED.RATE 54 MM/HR (0-30)
[2017-10-20] MEDS ORDERED: AMBIEN5 MG PO (16:34)
[2017-10-20] MEDS ORDERED: PROAIR HFA8.5 GM IH (16:34)
[2017-10-20] MEDS ORDERED: CYMBALTA30 MG PO (16:35)
[2017-10-20] MEDS ORDERED: ZOMIG5 MG PO (16:36)
[2017-10-20] MEDS ORDERED: SINGULAIR10 MG PO (16:36)
[2017-10-20] MEDS ORDERED: VITAMIN B122500 MCG PO (16:37)
[2017-10-20] MEDS ORDERED: KRILL OIL500 MG PO (16:37)
[2017-10-20] MEDS ORDERED: VITAMIN D35000 UNIT PO (16:38)
[2017-10-20 16:47] LABS: C-REACTIVE PROTEIN 9.7 MG/L (0-10)
[2017-10-20 17:57] LABS: APPEARANCE CLEAR ((CLEAR)); BILIRUBIN NEGATIVE; BLOOD NEGATIVE; COLOR YELLOW ((YELLOW)); GLUCOSE (STRIP) >=500; KETONES NEGATIVE; LEUKOCYTES NEGATIVE; NITRITE NEGATIVE; PROTEIN (STRIP) 30; SPECIFIC GRAVITY 1.029 (1.000-1.030); UCUL ADDED? NO; UROBILINOGEN 0.2 MG/DL (0.2-1.0)
[2017-10-20] MEDS ORDERED: METHYLPREDNISOLO4 M1 PO (21:10)
[2017-10-20] MEDS ORDERED: TRAMADOL HCL50 MG PO (21:11)
[2017-10-20] MEDS ORDERED: HYDROCHLOROTH12.5 M3 PO (21:12)
[2017-10-20] MEDS ORDERED: AMLODIPINE BESYL5 MG PO (21:12)
[2017-10-20] MEDS ORDERED: ASCORBIC ACID500 M3 PO (21:19)
[2017-10-20 22:06] VITALS: BP 170/100
[2017-10-21 01:33] VITALS: BP 206/92
[2017-10-21 05:07] VITALS: BP 143/71
[2017-10-21 05:25] LABS: HEMATOCRIT 46.2 % (36.0-46.0); HEMOGLOBIN 15.1 G/DL (11.9-15.5); MCH 29.5 PG (29.0-34.0); MCHC 32.7 G/DL (30.0-36.0); MCV 90.4 FL (83-99); PLATELET COUNT 301 K/uL (156-360); RBC DIS.WIDTH-CV 14.9 % (11.8-14.6); RBC DIS.WIDTH-SD 48.9 % (39-53); RED BLOOD COUNT 5.11 M/uL (3.80-5.20); WHITE BLOOD COUNT 12.3 K/uL (4.1-10.2)
[2017-10-21 05:50] LABS: CHLORIDE 97 MEQ/L (99-109); CREATININE 0.7 MG/DL (0.6-1.3); GFR ESTIMATE (CALCULATED) > 59 mL/min/; GLUCOSE 327 mg/dL (70-99); POTASSIUM 4.4 MEQ/L (3.7-5.4); UREA NITROGEN (BUN) 23 mg/dL (9-23)
[2017-10-21 05:52] LABS: SODIUM 132 MEQ/L (136-147)
[2017-10-21 08:41] VITALS: BP 187/85
[2017-10-21 12:08] VITALS: BP 128/67
[2017-10-21 15:13] VITALS: BP 130/67
[2017-10-21 15:25] LABS: CSF PROTEIN 192 mg/dL (15-45); GLUCOSE, CSF 151 mg/dL (40-80)
[2017-10-21 15:29] LABS: CSF TUBE NUMBER TUBE #4
[2017-10-21 15:30] LABS: APPEARANCE CLEAR/COLORLESS; RED CELL COUNT 52 /MM^3 (0-1); WHITE CELL COUNT 2 /MM^3 (0-5)
[2017-10-21 15:56] LABS: CSF EOSINOPHILS 0 % (0-25); MONONUCLEAR WBC'S 60 % (50-90); POLYNUCLEAR WBC'S 40 % (0-3)
[2017-10-21 15:57] LABS: CSF TUBE NUMBER (RECHECK) TUBE #1
[2017-10-21 15:58] LABS: RED CELL COUNT (RECHECK) 2800 /MM^3 (0-1)
[2017-10-21 17:08] LABS: URIC ACID 4.7 mg/dL (3.1-9.2)
[2017-10-21 17:37] LABS: THYROTROPIN (TSH) 1.2 MIU/L (0.4-5.5)
[2017-10-21 19:00] VITALS: BP 172/70
[2017-10-22 00:14] VITALS: BP 147/72
[2017-10-22 03:30] VITALS: BP 172/81
[2017-10-22 07:46] VITALS: BP 150/71
[2017-10-22 09:05] LABS: BASOPHIL (%) 0.2 % (0-1); EOSINOPHIL (%) 0.6 % (0-5); EOSINOPHIL COUNT 0.1 K/uL (0-0.3); HEMATOCRIT 44.8 % (36.0-46.0); HEMOGLOBIN 14.7 G/DL (11.9-15.5); IMMATURE GRANULOCYTE (%) 0.6 % (0.0-0.7); LYMPHOCYTE (%) 29.4 % (15-42); LYMPHOCYTE COUNT 4.1 K/uL (1.0-2.8); MCH 29.3 PG (29.0-34.0); MCHC 32.8 G/DL (30.0-36.0); MCV 89.4 FL (83-99); MONOCYTE (%) 5.7 % (3-12); MONOCYTE COUNT 0.8 K/uL (0-0.8); NEUTROPHIL (%) 63.5 % (45-76); NEUTROPHIL COUNT 8.8 K/uL (1.8-6.4); PLATELET COUNT 331 K/uL (156-360); RBC DIS.WIDTH-CV 14.8 % (11.8-14.6); RBC DIS.WIDTH-SD 48.1 % (39-53); RED BLOOD COUNT 5.01 M/uL (3.80-5.20); WHITE BLOOD COUNT 13.9 K/uL (4.1-10.2)
[2017-10-22 09:32] LABS: CHLORIDE 100 MEQ/L (99-109); GFR ESTIMATE (CALCULATED) > 59 mL/min/; GLUCOSE 174 mg/dL (70-99); POTASSIUM 4.1 MEQ/L (3.7-5.4); SODIUM 137 MEQ/L (136-147)
[2017-10-22 09:33] LABS: UREA NITROGEN (BUN) 39 mg/dL (9-23)
[2017-10-22 11:48] VITALS: BP 160/78
[2017-10-22 15:41] VITALS: BP 172/79
[2017-10-23] VITALS (7 sets, daily range): BP systolic 128–212; BP diastolic 62–98
[2017-10-24 04:08] VITALS: BP 146/70
[2017-10-24 07:38] VITALS: BP 116/63
[2017-10-24 11:40] VITALS: BP 135/74
[2017-10-24 19:25] VITALS: BP 119/56
[2017-10-25] VITALS (7 sets, daily range): BP systolic 124–183; BP diastolic 67–82
[2017-10-25 09:28] LABS: HEMATOCRIT 45.5 % (36.0-46.0); MCH 29.6 PG (29.0-34.0); MCV 89.9 FL (83-99); RBC DIS.WIDTH-CV 15.1 % (11.8-14.6); RBC DIS.WIDTH-SD 49.2 % (39-53); RED BLOOD COUNT 5.06 M/uL (3.80-5.20); WHITE BLOOD COUNT 7.8 K/uL (4.1-10.2)
[2017-10-25 09:41] LABS: CHLORIDE 101 MEQ/L (99-109); CREATININE 0.8 MG/DL (0.6-1.3); GFR ESTIMATE (CALCULATED) > 59 mL/min/; GLUCOSE 155 mg/dL (70-99); POTASSIUM 3.9 MEQ/L (3.7-5.4); SODIUM 139 MEQ/L (136-147); UREA NITROGEN (BUN) 29 mg/dL (9-23)
[2017-10-25 09:59] LABS: PLATELET COUNT 226 K/uL (156-360)
[2017-10-25 11:59] LABS: LYME DISEASE SEROLOGY SCREEN NEGATIVE (NEGATIVE)
[2017-10-26 00:26] VITALS: BP 163/82
[2017-10-26 03:18] VITALS: BP 147/76
[2017-10-26 07:18] VITALS: BP 137/74
[2017-10-26] MEDS ORDERED: Tylenol Extra Streng PO (11:26)
[2017-10-26] MEDS ORDERED: LOPERAMIDE2 MG PO (11:26)
[2017-10-26] MEDS ORDERED: PREDNISONE10 MG PO (11:26)
[2017-10-26] MEDS ORDERED: PREDNISONE20 MG PO (11:26)
[2017-10-26 11:33] VITALS: BP 160/84
== END 2017-10-26 15:37 | disposition home or self-care (01) | DRG 95 ==
LOC: EME 14:43 → EDOF 20:25 → 4SOUTH 20:25 → ENRESERV 20:40 → 4SOUTH 21:41
PROVIDERS: Emergency Medicine; Hospitalist; Internal Medicine; Nurse Practitioner Adult Health; Physician Assistant; Psychiatry & Neurology Neurology
PROC: 009U3ZX Drainage of Spinal Canal, Percutaneous Approach, Diagnostic (ICD-10-PCS; principal; 2017-10-21)
DX: G61.0 Guillain-Barre syndrome (principal); E87.1 Hypo-osmolality and hyponatremia; M50.121 Cervical disc disorder at C4-C5 level with radiculopathy; E11.9 Type 2 diabetes mellitus without complications; I10 Essential (primary) hypertension; G43.909 Migraine, unspecified, not intractable, without status migrainosus; F32.9 Major depressive disorder, single episode, unspecified; E66.9 Obesity, unspecified; Z68.41 Body mass index [BMI] 40.0-44.9, adult; I25.2 Old myocardial infarction; Z79.84 Long term (current) use of oral hypoglycemic drugs; Z87.442 Personal history of urinary calculi
CPT/HCPCS: 70450; 72132; 72141; 72148; 72195; 74177; 77002; 80048; 80053; 81003; 82533 91; 82945; 83873 90; 83916 90; 83930; 84157; 84300; 84443; 84550; 85025; 85027; 85651; 86140; 86618; 87070; 87205; 89051; 99281; 99285; G0378; J0360; J1170; J1566; J1650; J1885; J2930; J3010; J7040; J7512